=== PATIENT | male | born 1970 | race Caucasian/White ===

== ENCOUNTER → 2024-04-04 17:32 | Outpatient (REF) | payer OTHER, SELFPAY | LOC: MRI 17:32 | PROVIDERS: ATTENDING PHYSICIAN Internal Medicine Transplant Hepatology; FAMILY PHYSICIAN Family Medicine | DX: K74.60 Unspecified cirrhosis of liver (principal) | CPT/HCPCS: 74183; A9585 ==

== ENCOUNTER 2024-06-15 11:34 | Emergency (ER) | payer OTHER, SELFPAY ==
[2024-06-15 11:41] VITALS: BP 148/105
[2024-06-15 13:28] VITALS: BMI 34.9
[2024-06-15] MEDS: NSS 1000 IV (13:54)
[2024-06-15 14:00] VITALS: BP 132/90
[2024-06-15 14:10] LABS: % Basophils 0.5 % (0-2); % Eosinophils 1.1 % (0-6); % Immature Granulocytes 0.8 % (0-0.5); % Lymphocytes 24.3 % (20.5-51.1); % Monocytes 10.8 % (1.7-9.3); % Neutrophils 62.5 % (42.2-75.2); Absolute Eosinophils 0.1 10^3/uL (0-0.7); Absolute Immature Granulocytes 0.1 10^3/uL (0-0.05); Absolute Lymphocytes 1.8 10^3/uL (1.2-3.4); Absolute Monocytes 0.8 10^3/uL (0.1-0.6); Absolute Neutrophils 4.7 10^3/uL (1.4-6.5); Hematocrit 46.2 % (39.0-52.0); Hemoglobin 16.4 g/dL (13.0-18.0); Mean Corp Hgb Conc. 35.5 g/dL (33.0-37.0); Mean Corpuscular Hgb 31.1 pg (27.0-31.0); Mean Corpuscular Volume 87.5 fL (80.0-94.0); Nucleated Red Blood Cells % 0 % (-); Red Blood Cell Count 5.28 10^6/uL (4.70-6.10); Red Cell Dist. Width 12.9 % (11.5-14.5); White Blood Cell Count 7.6 10^3/uL (4.8-10.8)
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
[2024-06-15 14:40] LABS: Urine Albumin 1+ (Neg - Trace); Urine Bilirubin 1+ (Negative); Urine Character Clear (Clear); Urine Color Amber; Urine Glucose Negative (Negative); Urine Ketone Negative (Negative); Urine Leukocyte Trace (Negative); Urine Nitrite Negative (Negative); Urine Occult Blood Negative (Negative); Urine Specific Gravity 1.025 (<1.030); Urine Urobilinogen 1+ (Neg - 1+)
[2024-06-15 14:42] LABS: Platelet Count 219 10^3/uL (130-400)
[2024-06-15 14:48] LABS: Urine Mucus Many
[2024-06-15 14:49] LABS: Urine Red Blood Cell 0-2 /HPF (0-2)
[2024-06-15 15:13] LABS: ALT (SGPT) 86 U/L (0-50); AST (SGOT) 67 U/L (17-59); Alkaline Phosphatase 71 U/L (38-126); Blood Urea Nitrogen 22 mg/dl (9-20); Calcium 9.3 mg/dl (8.4-10.2); Carbon Dioxide 20 mmol/L (22-30); Chloride 110 mmol/L (98-107); Estimated Creatinine Clearance 96 ml/min; Glucose 104 mg/dl (70-99); Lipase 217 U/L (23-300); Magnesium 0.9 mg/dl (1.6-2.3); Potassium 4.3 mmol/L (3.5-5.1); Sodium 142 mmol/L (135-145); Total Bilirubin 0.6 mg/dl (0.2-1.3); Total Protein 8.1 g/dl (6.3-8.2); eGFR > 60.00
[2024-06-15 16:00] VITALS: BP 133/80
[2024-06-15] MEDS: MAGNESIUM SULFATE 100 IV (16:51)
[2024-06-15] MEDS: IMODIUM 2 MG PO (17:31)
[2024-06-15 18:00] VITALS: BP 135/78
== END 2024-06-15 18:10 | disposition home or self-care (01) ==
LOC: EMR 11:34
PROVIDERS: Physician Assistant; EMERGENCY PHYSICIAN Emergency Medicine; FAMILY PHYSICIAN Family Medicine
DX: E83.42 Hypomagnesemia (principal); R19.7 Diarrhea, unspecified; I10 Essential (primary) hypertension; E78.00 Pure hypercholesterolemia, unspecified; Z87.891 Personal history of nicotine dependence
CPT/HCPCS: 99285; 96374; 96361; 74177; 80053; 81003; 81015; 83690; 83735; 85025; 87045; 87046; 87324; 87427; 87449; 93005; Q9967

== ENCOUNTER 2024-08-17 09:52 | Emergency (ER) | payer OTHER, SELFPAY ==
[2024-08-17 09:56] VITALS: BP 158/93
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
[2024-08-17 11:00] VITALS: BP 151/70
== END 2024-08-17 10:55 | disposition home or self-care (01) ==
LOC: EMR 09:52
PROVIDERS: EMERGENCY PHYSICIAN Emergency Medicine; FAMILY PHYSICIAN Family Medicine
DX: S46.912A Strain of unspecified muscle, fascia and tendon at shoulder and upper arm level, left arm, initial encounter (principal); Y93.H2 Activity, gardening and landscaping; J45.909 Unspecified asthma, uncomplicated; I10 Essential (primary) hypertension; E78.00 Pure hypercholesterolemia, unspecified; Z87.891 Personal history of nicotine dependence; Z90.49 Acquired absence of other specified parts of digestive tract
CPT/HCPCS: 99283; 73030

== ENCOUNTER → 2024-10-25 07:32 | Outpatient (REF) | payer OTHER, SELFPAY | LOC: MRI 07:32 | PROVIDERS: ATTENDING PHYSICIAN Orthopaedic Surgery; FAMILY PHYSICIAN Family Medicine | DX: S43.422A Sprain of left rotator cuff capsule, initial encounter (principal) | CPT/HCPCS: 73221 ==

== ENCOUNTER → 2025-01-04 08:52 | Outpatient (REF) | payer OTHER, SELFPAY | LOC: MRI 3T 08:52 | PROVIDERS: ATTENDING PHYSICIAN Orthopaedic Surgery; FAMILY PHYSICIAN Family Medicine | DX: M87.051 Idiopathic aseptic necrosis of right femur (principal) | CPT/HCPCS: 73721 ==

== ENCOUNTER 2025-09-24 12:01 | Inpatient (IN) | payer OTHER, SELFPAY ==
[2025-09-24] VITALS (9 sets, daily range): BP systolic 114–149; BP diastolic 65–89; PULSE 88; BMI 37.9; BMI 37.0
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
[2025-09-24 09:43] LABS: Hematocrit 44.7 % (39.0-52.0); Hemoglobin 15.4 g/dL (13.0-18.0); Mean Corp Hgb Conc. 34.5 g/dL (33.0-37.0); Mean Corpuscular Volume 89.6 fL (80.0-94.0); Nucleated Red Blood Cells % 0 % (-); Platelet Count 206 10^3/uL (130-400); Red Cell Dist. Width 12.8 % (11.5-14.5)
[2025-09-24] MEDS: NSS 1000 IV (09:43)
[2025-09-24] MEDS: ANCEF 10 IV ×2 (09:43→17:41)
[2025-09-24 10:15] LABS: ALT (SGPT) 53 U/L (0-50); AST (SGOT) 36 U/L (17-59); Albumin 4.9 g/dl (3.5-5.0); Alkaline Phosphatase 69 U/L (38-126); Blood Urea Nitrogen 14 mg/dl (9-20); Calcium 9.5 mg/dl (8.4-10.2); Carbon Dioxide 27 mmol/L (22-30); Chloride 102 mmol/L (98-107); Glucose 128 mg/dl (70-99); Potassium 4.0 mmol/L (3.5-5.1); Sodium 138 mmol/L (135-145); Total Protein 8.2 g/dl (6.3-8.2); eGFR > 60.00
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
[2025-09-24] MEDS: TORADOL 30 MG IV ×2 (11:50→20:35)
[2025-09-24] MEDS: TYLENOL 1000 MG PO (11:51)
[2025-09-24] MEDS: CARDIZEM CD PO (13:38)
[2025-09-24] MEDS: GLUCOPHAGE PO (13:38)
[2025-09-24 16:57] LABS: Glucose - Point of Care 141 mg/dl (70-99)
[2025-09-24] MEDS: LOVENOX 40 MG SC (17:41)
[2025-09-24 21:42] LABS: Glucose - Point of Care 154 mg/dl (70-99)
[2025-09-25] MEDS: ANCEF 10 IV ×2 (01:37→09:10)
[2025-09-25 05:45] LABS: Hematocrit 39.3 % (39.0-52.0); Hemoglobin 13.5 g/dL (13.0-18.0); Mean Corp Hgb Conc. 34.4 g/dL (33.0-37.0); Mean Corpuscular Volume 91.0 fL (80.0-94.0); Platelet Count 182 10^3/uL (130-400); Red Cell Dist. Width 12.7 % (11.5-14.5)
[2025-09-25 06:01] LABS: Blood Urea Nitrogen 17 mg/dl (9-20); Calcium 8.5 mg/dl (8.4-10.2); Carbon Dioxide 27 mmol/L (22-30); Chloride 105 mmol/L (98-107); Estimated Creatinine Clearance 123 ml/min; Glucose 133 mg/dl (70-99); Magnesium 1.1 mg/dl (1.6-2.3); Potassium 3.8 mmol/L (3.5-5.1); Sodium 139 mmol/L (135-145); eGFR > 60.00
[2025-09-25 07:18] LABS: Glucose - Point of Care 130 mg/dl (70-99)
[2025-09-25] MEDS: GLUCOPHAGE 500 MG PO (07:43)
[2025-09-25] MEDS: CARDIZEM CD 180 MG PO (07:45)
[2025-09-25] MEDS: COZAAR 100 MG PO (07:45)
[2025-09-25] MEDS: MUCINEX 600 MG PO (07:46)
[2025-09-25] MEDS: TRICOR 145 MG PO (07:46)
[2025-09-25 08:15] VITALS: BP 138/80
[2025-09-25] MEDS: MAGNESIUM SULFATE 100 IV (09:09)
[2025-09-25 09:20] LABS: Glycohemoglobin (HgbA1c) 5.9 % (4.0-5.9)
--- NOTE | 2025-09-25 11:36 | CM ---
Patient seen bedside, initial assessment completed. Patient is a 55-year-old male with a past medical history of hepatic steatosis, hypertension, hyperlipidemia, asthma, chronic pain/neuropathy, diabetes, and obstructive sleep apnea presents with a
1 day history of left lower extremity pain.
Patient resides w/ spouse, stepdaughter and granddaughter in a single story rancher style home, 2 steps to enter. 2 steps to bedroom. Patient is independent in all areas. Has CPAP he uses at night. No therapy hx, no HC hx.
Address, points of contact and insurance verified
PCP: Kirk Villalba
Pharmacy: [facility]
Currently on IV Ancef
Plan: Home, no needs anticipated
[2025-09-25 11:41] LABS: Glucose - Point of Care 93 mg/dl (70-99)
[2025-09-25 15:30] VITALS: BP 134/82
[2025-09-25 15:43] LABS: Magnesium 2.1 mg/dl (1.6-2.3)
--- NOTE | 2025-09-25 15:57 | W.PN.HOSP.TC ---
Today's Communication/Plan
-
Medically stable for discharge today
Assessment / Plan
Assessment / Plan
HPI: 55-year-old male with a past medical history of hepatic steatosis, hypertension, hyperlipidemia, asthma, chronic pain/neuropathy, diabetes, and obstructive sleep apnea presents with a 1 day history of left lower extremity pain. Patient reports
experiencing pain of his ankle this morning, then the pain worsened throughout the morning. He started having redness as well, that started at the ankle, has now progressed up to his knee. He does report fever and chills. He denies chest pain,
denies shortness of breath. No nausea, no vomiting.
#Acute left lower extremity cellulitis
Improving on IV Ancef
Afebrile, leukocytosis resolved
Medically stable for discharge on Keflex 1 g 4 times daily for 9 more days to complete a 10-day course
Follow-up with PCP in 1 week
#Hypomagnesemia
Magnesium 1.1
Patient received 4 g of magnesium sulfate, repeat magnesium 2.1
Patient takes magnesium oxide at night, will increase to twice a day
#Type 2 diabetes
Hemoglobin A1c 5.9, sliding scale insulin, carb controlled diet
Continue home metformin
#Essential hypertension
Continue diltiazem, losartan
#Hepatic steatosis
#Hyperlipidemia
Continue fenofibrate
DVT prophylaxis�subcu Lovenox
Full code
Physical Exam
General: Obese, no acute distress
HEENT: Normocephalic, Atraumatic, EOMI, MMM
Respiratory: Clear to Auscultation bilaterally
Cardiac: Normal S1/S2, Regular Rate and Rhythm
GI: Soft, Nontender, Nondistended, Normal Bowel Sounds
Extremities: No Clubbing, Cyanosis
Neuro: Nonfocal/Grossly Intact
Psych: Calm, Cooperative
Derm: Left lower extremity with improving erythema and tenderness
Anticipated Discharge: Today
Subjective/Interval History
-
Date of Service: September 25, 2025
Patient reports his left lower extremity pain has improved dramatically, now is currently a mild burning sensation. He denies chest pain, denies shortness of breath. No fever, no vomiting. He is eager for discharge today.
Objective Data
-
Labs:
Laboratory Results
09/25/25 09/25/25
05:04 05:05
WBC 8.1
Hgb 13.5
Hct 39.3
Plt Count 182
Sodium 139
Potassium 3.8
Chloride 105
Carbon Dioxide 27
BUN 17
Creatinine 0.8
Glucose 133 H
Calcium 8.5
Vital Signs:
Vital Signs
Temp Pulse Resp BP Pulse Ox
98.6 F 73 20 134/82 98
09/25/25 15:30 09/25/25 15:30 09/25/25 15:30 09/25/25 15:30 09/25/25 15:30
I&O
09/24/25 09/25/25 09/26/25
06:59 06:59 06:59
Intake Total 700 / 700
Balance 700 / 700
--- NOTE | 2025-09-25 16:58 | W.DCSUMMARY ---
Discharge Summary
Discharge Data
Date of Admission: 09/24/25
Date of Discharge: 09/25/25
-
Pending Results: No
Hospital Course
Discharge diagnosis:
Acute left lower extremity cellulitis
Hypomagnesemia
Controlled diabetes, hemoglobin A1c 5.9
Hepatic steatosis
Essential hypertension
Hyperlipidemia
Obesity due to excess calories
Hospital course:
55-year-old male with a past medical history of diabetes, hepatic steatosis, hypertension, hyperlipidemia, and obesity who was admitted for acute left lower extremity cellulitis. He was treated with IV Ancef. By the following day, his pain
improved dramatically. He was eager for discharge. He can be discharged on Keflex 1 g 4 times daily to complete a 10-day course.
Patient had hypomagnesemia, his magnesium level was 1.1. He received 4 g of IV magnesium, and his repeat magnesium level was 2.1. He is on magnesium supplements at night. He was instructed to increase the frequency to twice a day, and increase
his consumption of foods high in magnesium.
Patient is medically stable for discharge. He needs to follow-up with his PCP in 1 week.
Disposition: Home self-care
Discharge planning: Required 37 minutes
Discharge Plan
-
Patient Disposition: Home (Routine Discharge)
Discharge Diagnosis/Procedures: Left lower extremity cellulitis, hypomagnesemia/low magnesium
Condition: Good
Activity Restrictions/Additional Instructions:
Your hemoglobin A1c is excellent, 5.9.
Please take your antibiotic/cephalexin, 2 tablets 4 times a day.
You can take your cephalexin with breakfast, lunch, dinner, and before bed.
Your magnesium in the hospital was low, you received IV magnesium.
You can increase your magnesium oxide tablets to twice a day.
Also increase consumption of foods containing magnesium:
leafy green vegetables, such as spinach.
legumes.
nuts and seeds.
whole grains.
seafood.
meat such as chicken and beef.
Follow-up with your primary care provider in 1 week.
Referrals:
Kirk Villalba MD [Family Provider, [facility]] - in one week
Prescriptions:
New
cephalexin 500 mg tablet
1,000 mg PO QID 9 Days Qty: 72 0RF
Continued
fenofibrate 160 MG tablet
160 mg PO DAILY
losartan [Cozaar] 100 MG tablet
100 mg PO DAILY
guaifenesin [Mucus Relief ER] 600 MG tablet extended release 12hr
600 mg PO DAILY
diltiazem HCl 180 MG capsule,extended release 24hr
180 mg PO DAILY
furosemide 20 mg Tablet
20 mg PO DAILYPRN PRN (Reason: leg swelling)
metformin 500 mg Tablet
500 mg PO DAILY
therapeutic multivitamin Tablet
1 tab PO DAILY
acetaminophen 650 mg Tablet Extended Release
1,300 mg PO HS
ibuprofen 400 mg Tablet
400 mg PO DAILYPRN PRN (Reason: mild pain)
Changed
magnesium oxide 420 mg Tablet
420 mg PO BID Qty: 0 0RF
Discharge Orders:
Discharge Patient (As Directed); Ordered 09/25/25
Ordered By: Dima Maloney
Discharge Date and Time
Discharge Date/Time: 09/25/25 16:38
Print Language: FIJIAN
== END 2025-09-25 16:38 | disposition home or self-care (01) | DRG 603 ==
LOC: 4 WEST ACU 12:01
PROVIDERS: Physician Assistant; ADMITTING PHYSICIAN Family Medicine; EMERGENCY PHYSICIAN Student in an Organized Health Care Education/Training Program; FAMILY PHYSICIAN Family Medicine
DX: L03.116 Cellulitis of left lower limb (principal); K76.0 Fatty (change of) liver, not elsewhere classified; I87.2 Venous insufficiency (chronic) (peripheral); E78.00 Pure hypercholesterolemia, unspecified; I10 Essential (primary) hypertension; J45.909 Unspecified asthma, uncomplicated; E11.40 Type 2 diabetes mellitus with diabetic neuropathy, unspecified; G89.29 Other chronic pain; G47.33 Obstructive sleep apnea (adult) (pediatric); M19.90 Unspecified osteoarthritis, unspecified site; E83.42 Hypomagnesemia; E66.09 Other obesity due to excess calories; Z88.6 Allergy status to analgesic agent; Z88.5 Allergy status to narcotic agent; Z87.891 Personal history of nicotine dependence; Z90.49 Acquired absence of other specified parts of digestive tract; Z68.36 Body mass index [BMI] 36.0-36.9, adult
CPT/HCPCS: 80048; 80053; 82962; 83036; 83605; 83735; 85025; 85027; 87040; 94660; 96361; 96374; 99284